=== PATIENT | female | born 1975 | race Caucasian/White ===

== ENCOUNTER 2019-01-18 10:54 | Emergency (ER) | payer MEDICAID ==
[2019-01-18] MEDS: ACETAMINOPHEN 325 MG TAB PO (11:28)
== END 2019-01-18 11:40 | disposition home or self-care (01) ==
LOC: FTE 10:54
DX: R05 Cough (principal); R50.9 Fever, unspecified; I10 Essential (primary) hypertension
CPT/HCPCS: 99282; Z7502